=== PATIENT | male | born 1995 | race Hispanic/Latino ===

== ENCOUNTER 2024-10-31 17:42 | Emergency (ER) | payer SELFPAY ==
[~2024-10-31] VITALS: Ht 172.7 cm; Wt 142.9 kg
--- NOTE | 2024-10-31 18:05 | ERN ---
ED Note History of Present Illness Stated Complaint: UNABLE TO GO RR X2 WKS,SEVERE ABD PAIN, WEAKNESS Chief Complaint: Constipation Time Seen by MD: 17:44 Dictation: PATIENT IS A 28-YEAR-OLD MALE COMING IN TODAY WITH COMPLAINTS OF HAVING IRREGULAR BOWEL MOVEMENTS AND POOP AND ONLY SMALL STOOLS FOR THE LAST SEVERAL YEARS. HE DENIES NAUSEA VOMITING NO DIARRHEA. STATES HE HAS NO PRIMARY CARE DOCTOR. STATES HE CONTINUES TO EAT DESPITE HIS CONSTIPATION. HE HAS TAKEN [id number] LAXATIVE IN THE PAST SUCH MAGNESIUM CITRATE HOWEVER HE SAID HE GETS VERY LITTLE RELIEF. STATES HE WAS SEEN AT [facility] ABOUT THE SAME COMPLAINT THREE MONTHS AGO HAD IMAGING DONE AND WAS TOLD TO CONTINUE METAMUCIL [id number]. HE STATES HE WAS NEVER REFERRED TO A PRIMER WATERPROOFING MACHINE OPERATOR. Allergies: Coded Allergies: No Known Drug Allergies (Unverified Allergy, Unknown, 10/31/24) Past Medical History Past Medical History: Constipation Surgical History: None RN Note Reviewed/Agreed w/PFSH: Yes Review of System Dictation CONSTITUTIONAL: NEGATIVE EXCEPT FOR HPI HEAD/FACE: NEGATIVE EXCEPT FOR HPI EENT: NEGATIVE EXCEPT FOR HPI RESPIRATORY: NEGATIVE EXCEPT FOR HPI GASTROINTESTINAL/ABDOMINAL: NEGATIVE EXCEPT FOR HPI CONSTIPATION/BLOATING GENITOURINARY: NEGATIVE EXCEPT FOR HPI MUSCULOSKELETAL: NEGATIVE EXCEPT FOR HPI INTEGUMENTARY: NEGATIVE EXCEPT FOR HPI NEUROLOGICAL/PSYCH: NEGATIVE EXCEPT FOR HPI HEMATOLOGIC/LYMPHATIC: NEGATIVE EXCEPT FOR HPI ALL SYSTEMS NEGATIVE, EXCEPT NOTED ABOVE. 13 POINT REVIEW OF SYSTEMS ASSESSED AND ALL NEGATIVE EXCEPT FOR ABOVE. Initial Vital Sign VS Vital Signs Date Time Temp Pulse Resp B/P (MAP) Pulse Ox O2 Delivery O2 Flow Rate FiO2 10/31/24 17:50 98.2 81 18 183/87 99 10/31/24 18:59 Room Air* 0 21 Physical Exam Dictation VITAL SIGNS REVIEWED GENERAL APPEARANCE: ALERT, ORIENTED X 3, MILD ACUTE DISTRESS, WELL DEVELOPED, NOURISHED. OBESE HEAD AND FACE: NON-TRAUMATIC. EYES: PERRL, PINK CONJUNCTIVAS, EYELID NO TRAUMA, ANTERIOR CHAMBER WITH ARCUS SENILIS. EARS: PINNAS INTACT AND NO SIGNS OF TRAUMA OR ERYTHEMA EAR CANALS CLEAR AND NO DISCHARGE TM NO ERYTHEMA NOSE: NO DISCHARGE, NO BLEEDING. OROPHARYNX: MOUTH NORMAL, TONGUE PINK, PHARYNX CLEAR,NO ERYTHEMA, TONSILS NO EXUDATES, NO ABSCESSES NOTED, MUCOUS MEMBRANE MOIST NECK: SUPPLE, NON-TENDER, NO THYROMEGALY, NO MASSES, NO JVD, NO BRUITS BREAST:DEFERRED CHEST:NO TENDERNESS, NO CREPITUS, NO PARADOXICAL MOVEMENT, NO RETRACTIONS LUNGS:CLEAR, WELL-VENTILATED, SYMMETRIC, NO RALES, NO WHEEZING, NO RHONCHI, NO STRIDOR, GOOD BREATH SOUNDS BILATERALLY HEART: REGULAR RATE, REGULAR RHYTHM, NO MURMUR, NO GALLOPS VASCULAR: NO PERIPHERAL EDEMA, ABDOMEN: SOFT, DIMINISHED BOWEL SOUNDS THROUGHOUT, NO FOCAL TENDERNESS. NO REBOUND TENDERNESS NEGATIVE CVAT. PATIENT FULL WEIGHT-BEARING TO TRIAGE RECTAL: DEFERRED GENITAL: DEFERRED NEUROLOGICAL: NORMAL SPEECH, MOTOR FUNCTION INTACT, SENSORY FUNCTION INTACT MUSCULOSKELETAL: NECK NONTENDER, FULL RANGE OF MOTION, BACK NONTENDER, FULL RANGE OF MOTION, EXTREMITIES: NONTENDER, FULL RANGE OF MOTION SKIN: COLOR PINK, DRY, NO TURGOR, NO RASH, NO LACERATIONS, NO ABRASIONS, NO CONTUSIONS. LYMPHATIC: DEFERRED Results (Laboratory/Radiology) Labs Reviewed?: Yes ED Course ED Course Orders Procedure Category Date Status Time Abd 1vw RAD 10/31/24 Taken 18:01 Bisacodyl (Dulcolax) PHA 10/31/24 Complete 18:30 Lactulose 20 Gm/30 Ml PHA 10/31/24 Complete Udcup (Constulose 18:30 Current Medications Medications (Trade) Dose Ordered Sig/Jasen Route PRN Reason Start Time Stop Time Status Last Admin Dose Admin Bisacodyl (DulcoLAX) 10 mg ONCE ONCE RC 10/31/24 18:30 10/31/24 18:42 DC 10/31/24 19:10 Lactulose (Constulose 20gm/ 30ml Udcup) 20 gm ONCE ONCE PO 10/31/24 18:30 10/31/24 18:42 DC 10/31/24 19:10 Vital Signs Date Time Temp Pulse Resp B/P (MAP) Pulse Ox O2 Delivery O2 Flow Rate FiO2 10/31/24 18:59 98.2 80 18 177/85 99 Room Air* 0 21 10/31/24 17:50 98.2 81 18 183/87 99 Medical Decision Making MDM MEDICAL DISCHARGE MAKING BASED ON KUB. PATIENT HAS NONSPECIFIC GAS PATTERN WITH RETAINED STOOL. NO AIR-FLUID LEVELS ADDITIONALLY HE WILL BE TREATED FOR HYPERTENSION LAST BLOOD PRESSURE 177/85 THIS WAS DISCUSSED WITH HIM AT LENGTH HE WILL BE REFERRED TO DR. GIRARD DX & DISP Disposition: Discharge Departure Impression: Primary Impression: Acute constipation Additional Impressions: Gas pain, Hypertension Condition: Stable Scripts Peg 3350/Na Sulf,Bicarb,Cl/KCl (Golytely/Colyte Soln) 236-22.74G Soln 4000 ML PO AD, #1 BOTTLE MIXED BOTTLE DIRECTED WITH WATER. DRINK ONE CUP EVERY 10 MINUTES UNTIL YOUR STOOLS ARE CLEAR. Prov: LIDA HASTINGS NP 10/31/24 Enalapril Maleate (Enalapril Maleate) 10 Mg Tablet 1 TAB PO DAILY for 30 Days, #30 TAB 0 Refills Prov: LIDA HASTINGS NP 10/31/24 Additional Instructions: FOLLOW-UP WITH PRIMARY CARE PROVIDER IN 1 TO 2 DAYS. TAKE MEDICATIONS DIRECTED HERE IN THE EMERGENCY ROOM. OKAY TO CONTINUE HOME MEDICATIONS UNLESS OTHERWISE DISCUSSED DURING YOUR VISIT IN THE EMERGENCY ROOM TODAY. RETURN TO YOUR NEAREST EMERGENCY ROOM IF SYMPTOMS WORSEN OR IF THERE IS NO IMPROVEMENT. CALL 911 IF YOU NEED IMMEDIATE ASSISTANCE. TAKE TYLENOL OR MOTRIN [id number] NEEDED AND IF NO CONTRAINDICATIONS ARE PRESENT. INCREASE ORAL HYDRATION. A WOUND CULTURE OR URINE CULTURE WAS ORDERED HERE IN THE EMERGENCY ROOM DEPARTMENT PLEASE FOLLOW-UP WITH PRIMARY CARE PROVIDER AND ADVISE THEM TO GET REPEAT PORTS FROM OUR FACILITY. IF YOU HAD ANY HAKEEM WRAP/SPLINTS THAT WERE APPLIED HERE, PLEASE DO NOT REMOVE THEM UNTIL YOU SEE YOUR PRIMARY CARE OR SPECIALTY. USE GOLYTELY DIRECTED UNTIL STOOLS ARE CLEAR. TAKE ENALAPRIL FOR YOUR BLOOD PRESSURE DAILY. CALL PRIMER WATERPROOFING MACHINE OPERATOR FOR AN APPOINTMENT IN THE NEXT 1-2 DAYS. FOLLOW UP WITH A PRIMARY CARE DOCTOR IN THE NEXT WEEK FOR FOLLOW UP AND MANAGEMENT OF YOUR BLOOD PRESSURE. Referrals: SELF,REFERRAL (PCP) KESHA DRAPER MD, JACK P NP Oct 31, 2024 18:05
[2024-10-31] MEDS: LACTULOSE 20 GM/30 ML UDCUP PO ONE (19:10)
[2024-10-31] MEDS ORDERED: ENAL-89 PO (20:07)
[2024-10-31] MEDS ORDERED: GOLY4L PO (20:07)
[2024-10-31 20:10] VITALS: BP 159/79; PULSE 79; RESP 18; TEMP 98.6; O2SAT 99
--- NOTE | 2024-10-31 20:32 | HMCIMG ---
EXAM: CR Abdomen, 2 View. CLINICAL HISTORY: CONSTIPATION/BLOATING ???MONTHS??? COMPARISON: None provided. FINDINGS: BOWEL: The bowel gas pattern is within normal limits. PERITONEUM/SOFT TISSUES: No free air evident. No pathologic appearing calcification. BONES: No acute osseous abnormality. IMPRESSION: The bowel gas pattern is within normal limits. /Gardena
== END 2024-10-31 20:13 | disposition home or self-care (01) ==
LOC: EDH 17:42
DX: K59.00 Constipation, unspecified (principal); I10 Essential (primary) hypertension; R14.1 Gas pain
CPT/HCPCS: 74018; 99283

== ENCOUNTER 2025-03-06 13:03 | Emergency (ER) | payer SELFPAY ==
[~2025-03-06] VITALS: Ht 172.7 cm; Wt 139.5 kg
[~2025-03-06 13:03] MED LIST: ENAL-89 PO; GOLY4L PO
--- NOTE | 2025-03-06 13:20 | ERN ---
General Chief Complaint: Back Pain or Injury Stated Complaint: BACK PAIN Time Seen by : 13:05 Source: patient History of Present Illness Initial Comments The patient is a 29-year-old male who came to the ER with complaint of severe back pain. As per the patient, the patient bent down yesterday to pick something up from the floor and had a severe pain in his upper back. Initially he thought it was a muscle spasm and he did some stretches but it did not help therefore the patient came to the ER as the pain is constant and severe Timing/Duration: 24 hours Severity: severe Modifying Factors: improves with movement Allergies: Coded Allergies: No Known Drug Allergies (Unverified Allergy, Unknown, 10/31/24) Home Meds Active Scripts Naproxen Sodium (Naproxen Sodium) 550 Mg Tablet, 1 TAB PO BID for arthritis for 5 Days, #10 TAB 0 Refills Prov:MARLEEN STARK MD 03/06/25 Lidocaine (Lidocaine Pain Relief) 4 % Adh..patch, 1 PATCH TP DAILY for 5 Days, #5 PATCH 0 Refills Prov:MARLEEN STARK MD 03/06/25 Methocarbamol (Robaxin) 750 Mg Tab, 1 TAB PO BID for 5 Days, #10 TAB 0 Refills Prov:MARLEEN STARK MD 03/06/25 Peg 3350/Na Sulf,Bicarb,Cl/KCl (Golytely/Colyte Soln) 236-22.74G Soln, 4000 ML PO AD, #1 BOTTLE MIXED BOTTLE DIRECTED WITH WATER. DRINK ONE CUP EVERY 10 MINUTES UNTIL YOUR STOOLS ARE CLEAR. Prov:LIDA HASTINGS 10/31/24 Enalapril Maleate (Enalapril Maleate) 10 Mg Tablet, 1 TAB PO DAILY for 30 Days, #30 TAB 0 Refills Prov:LIDA HASTINGS 10/31/24 Past Medical History Past Medical History: Constipation Past Surgical History: Other Surgical History Other: RT HAND SX Physical Exam General Appearance: (+) mild distress Orientation: (+) alert, (+) oriented x 3 Ear, Nose, Throat: (+) hearing grossly normal Neck: (+) normal inspection Gastrointestinal: (+) soft Back Comment Pain and tenderness on center of the upper back going to the left lateral side Results Laboratory and Microbiology Labs Reviewed?: Yes EKG/XRAY/US/CT/MRI EKG Comment Heart rate 82 WV interval 154 QT interval [address] segment elevation X-RAY Comment Xray thoracic spine 1. No acute fracture or malalignment 2. Mild osteopenia MDM MDM: Differential diagnosis: Back spasm, osteoarthritis of back, acute on chronic back pain Rationale: Tests considered and ordered secondary to shared decision making include: Previous outside records reviewed: Old ER visits. Risk of complication and/or morbidity or mortality of patient management: None Medications-Per medication reconciliation Need for hospitalization: Patient does not meet criteria for hospitalization. Need for emergency major/minor surgery: No The patient came to the ER with complain of upper back pain. Thoracic xray was ordered and the patient was given orphenadrine and Toradol along with a lidocaine patch. An EKG was done that showed no ST-elevation. The patient was discharged with recommendations to follow up with orthopedic surgeon. He was also prescribed Robaxin, naproxen and lidocaine patch. ED Course Orders Procedure Category Date Status Time Thoracic Spine 2vws RAD 03/06/25 Resulted 13:33 12 Lead Ekg Tracing- EKG 03/06/25 Complete Technical 13:33 Ketorolac PHA 03/06/25 Complete Tromethamine 30mg/Ml 14:00 Orphenadrine Citrate PHA 03/06/25 Complete (Norflex) 14:00 Lidocaine (Lidocaine PHA 03/06/25 Complete Patch 4%) 15:00 Current Medications Medications (Trade) Dose Ordered Sig/Jasen Route PRN Reason Start Time Stop Time Status Last Admin Dose Admin Ketorolac Tromethamine (toRADol) 30 mg ONCE ONCE IM 03/06/25 14:00 03/06/25 14:01 DC 03/06/25 14:17 Ketorolac Tromethamine (toRADol) 30 mg ONCE ONCE IVP 03/06/25 14:00 03/06/25 13:49 DC Lidocaine (Lidocaine Patch 4%) 1 each ONCE ONCE TP 03/06/25 15:00 03/06/25 15:01 DC Orphenadrine Citrate (Norflex) 60 mg ONCE ONCE IM 03/06/25 14:00 03/06/25 14:01 DC 03/06/25 14:16 Orphenadrine Citrate (Norflex) 60 mg ONCE ONCE IVP 03/06/25 14:00 03/06/25 13:49 DC Vital Signs Date Time Temp Pulse Resp B/P (MAP) Pulse Ox O2 Delivery O2 Flow Rate FiO2 03/06/25 15:06 98.8 82 16 153/99 97 Room Air* 0 21 03/06/25 13:30 98.8 95 16 145/105 97 Room Air* 0 21 03/06/25 13:05 98.2 94 18 181/106 99 Room Air 0 DX & DISP Disposition: Discharge Departure Impression: Primary Impression: Back spasm Additional Impression: Strain, back Condition: Stable Scripts Naproxen Sodium (Naproxen Sodium) 550 Mg Tablet 1 TAB PO BID for arthritis for 5 Days, #10 TAB 0 Refills Prov: MARLEEN STARK MD 03/06/25 Lidocaine (Lidocaine Pain Relief) 4 % Adh..patch 1 PATCH TP DAILY for 5 Days, #5 PATCH 0 Refills Prov: MARLEEN STARK MD 03/06/25 Methocarbamol (Robaxin) 750 Mg Tab 1 TAB PO BID for 5 Days, #10 TAB 0 Refills Prov: MARLEEN STARK MD 03/06/25 Additional Instructions: *Follow up with your primary care physician in 2 - 3 days after discharge. *Continue all medications as prescribed. Do not discontinue or change dosages without consulting your PCP. *Gradually resume normal activities as tolerated. *Continue a balanced diet . Reduce salt intake to help manage BP. *Seek immediate medical attention if you experience chest pain, SOB or severe headache. *Smoking cessation is strongly advised. Resources for quitting smoking are available upon request. Referrals: SELF,REFERRAL (PCP) JAMARCUS BALTAZAR MD Time of Disposition: 15:15 MARLEEN STARK MD Mar 06, 2025 13:20 DEWAYNE HAMPTON MD Mar 06, 2025 15:12
[2025-03-06] MEDS ORDERED: ORPHENADRINE 60MG/2ML IVP ONE (14:00)
[2025-03-06] MEDS: ORPHENADRINE 60MG/2ML IM ONE (14:16)
--- NOTE | 2025-03-06 14:17 | EKG ---
[facility] Test Date: 2025-03-06 Test Time: 13:42:20 Pat Name: JUANITA LINDA Department: [facility] [place] [id number] Room: Gender: M Health Information Administrator: [id number] : 1995 Requested By: MARLEEN STARK Order Number: [id number] Reading MD: Sony Rasheed Measurements Intervals [place] Rate: 82 P: 44 OK: 154 QRS: 26 QRSD: 95 T: 25 QT: 369 QTc: 432 Interpretive Statements Sinus rhythm No previous ECG available for comparison Electronically Signed On 03-06-2025 18:56:59 [employer] by Sony Rasheed Please click the below link to view image of tracing.
--- NOTE | 2025-03-06 14:48 | HMCIMG ---
THORACIC SPINE 2VWS REASON: Upper back pain COMPARISON: None. TECHNIQUE: A images were obtained. FINDINGS: There are normal appearing vertebral bodies. Interspace heights are well preserved. There are no visible fractures. Soft tissues appear unremarkable. There is mild osteopenia. IMPRESSION: 1. No acute fracture or malalignment 2. Mild osteopenia.
[2025-03-06 15:06] VITALS: BP 153/99; PULSE 82; RESP 16; TEMP 98.7; O2SAT 97
[2025-03-06] MEDS ORDERED: NAPR-1174 PO (15:10)
[2025-03-06] MEDS ORDERED: LIDO1ADH71 TP (15:10)
[2025-03-06] MEDS ORDERED: METH-662 PO (15:10)
[2025-03-06] MEDS: LIDOCAINE 4% ADH..PATCH TP ONE (15:15)
== END 2025-03-06 15:40 | disposition home or self-care (01) ==
LOC: EDH 13:03
DX: S29.012A Strain of muscle and tendon of back wall of thorax, initial encounter (principal); M62.830 Muscle spasm of back; M19.90 Unspecified osteoarthritis, unspecified site; Z79.899 Other long term (current) drug therapy; X50.9XXA Other and unspecified overexertion or strenuous movements or postures, initial encounter; Y93.89 Activity, other specified; Y92.89 Other specified places as the place of occurrence of the external cause; Y99.8 Other external cause status
CPT/HCPCS: 99284; 72070; 96372 ×2; 93005; J1885; J2360